=== PATIENT | female | born 1985 | race Caucasian/White ===

== ENCOUNTER 2024-05-04 18:22 | Emergency (ER) | payer MEDICAID ==
[~2024-05-04] VITALS: Ht 167.6 cm; Wt 143.8 kg
[2024-05-04 18:30] VITALS: BP_SYST 135; PULSE 72; RESP 18; TEMP 97.8; O2SAT 98
[2024-05-04 19:55] LABS: BASOPHILS # (AUTO) 0.1 K/uL (0.0-0.2); BASOPHILS % (AUTO) 0.8 % (0.0-2.0); EOSINOPHILS # (AUTO) 0.2 K/uL (0.0-0.4); EOSINOPHILS % (AUTO) 1.8 % (0.0-4.0); HEMATOCRIT 37.6 % (36-48); HEMOGLOBIN 12.6 g/dL (12.0-16.0); LYMPHOCYTES # (AUTO) 4.2 K/uL (1.0-5.5); LYMPHOCYTES % (AUTO) 39.3 % (20.5-51.5); MEAN CORPUSCULAR HEMOGLOBIN 28 pg (27-31); MEAN CORPUSCULAR HGB CONC 34 % (32-36); MEAN CORPUSCULAR VOLUME 85 fL (79.0-98.0); MONOCYTES # (AUTO) 0.5 K/uL (0.0-1.0); MONOCYTES % (AUTO) 4.6 % (1.7-9.3); NEUTROPHILS # (AUTO) 5.7 K/uL (1.8-7.7); NEUTROPHILS % (AUTO) 53.5 % (40.0-70.0); PLATELET COUNT (AUTO) 277 K/uL (130-430); RED BLOOD CELL COUNT(AUTO) 4.44 MIL/uL (4.2-6.2); RED CELL DISTRIBUTION WIDTH 14.5 % (9.0-15.0); WHITE BLOOD COUNT (AUTO) 10.7 K/uL (4.8-10.8)
[2024-05-04 20:33] LABS: CALCIUM 9.5 mg/dL (8.4-11.0); CREATININE 0.76 mg/dL (0.55-1.30); POTASSIUM 3.7 mmol/L (3.5-5.1)
[2024-05-04] MEDS ORDERED: AMOX-423 PO (21:01)
[2024-05-04] MEDS ORDERED: CORTEARS EACH EAR (21:01)
[2024-05-04] MEDS ORDERED: IBUP-1969 PO (21:01)
[2024-05-04 21:09] VITALS: BP_SYST 129; PULSE 70; RESP 18; TEMP 97.8; O2SAT 99
== END 2024-05-04 21:07 | disposition home or self-care (01) ==
LOC: SED 18:22
DX: H60.93 Unspecified otitis externa, bilateral (principal); Z79.899 Other long term (current) drug therapy; Z79.2 Long term (current) use of antibiotics
CPT/HCPCS: 36415; 70450-TC; 80048; 81025; 83605; 85025; 99284

== ENCOUNTER 2024-06-14 11:18 | Emergency (ER) | payer MEDICAID ==
[~2024-06-14] VITALS: Ht 165.1 cm; Wt 143.8 kg
[2024-06-14 11:18] VITALS: BP_SYST 112; PULSE 96; RESP 20; TEMP 97.8; O2SAT 98
[~2024-06-14 11:18] MED LIST: AMOX-423 PO; CORTEARS EACH EAR; IBUP-1969 PO
[2024-06-14] MEDS: ALBUTEROL SULFATE 0.083% 2.5 MG/3 ML VIAL.NEB INH ONE ×2 (12:15→13:30)
[2024-06-14] MEDS: IPRATROPIUM BROM 0.5 MG/2.5 ML VIAL.NEB (ATROVENT) INH ONE (12:15)
[2024-06-14] MEDS: predniSONE 20 MG TABLET PO ONE (12:27)
[2024-06-14 12:39] LABS: BASOPHILS # (AUTO) 0.1 K/uL (0.0-0.2); BASOPHILS % (AUTO) 0.9 % (0.0-2.0); EOSINOPHILS # (AUTO) 0.4 K/uL (0.0-0.4); EOSINOPHILS % (AUTO) 3.8 % (0.0-4.0); HEMATOCRIT 36.7 % (36-48); LYMPHOCYTES # (AUTO) 4.2 K/uL (1.0-5.5); LYMPHOCYTES % (AUTO) 36.1 % (20.5-51.5); MEAN CORPUSCULAR HEMOGLOBIN 28 pg (27-31); MEAN CORPUSCULAR HGB CONC 33 % (32-36); MEAN CORPUSCULAR VOLUME 85 fL (79.0-98.0); MONOCYTES # (AUTO) 0.7 K/uL (0.0-1.0); MONOCYTES % (AUTO) 5.8 % (1.7-9.3); NEUTROPHILS # (AUTO) 6.2 K/uL (1.8-7.7); NEUTROPHILS % (AUTO) 53.4 % (40.0-70.0); PLATELET COUNT (AUTO) 258 K/uL (130-430); RED BLOOD CELL COUNT(AUTO) 4.31 MIL/uL (4.2-6.2); WHITE BLOOD COUNT (AUTO) 11.5 K/uL (4.8-10.8)
[2024-06-14 13:30] LABS: ALBUMIN 3.5 g/dL (3.4-4.8); BILIRUBIN,DIRECT 0.1 mg/dL (0.0-0.3); CALCIUM 9.2 mg/dL (8.4-11.0); CREATININE 0.71 mg/dL (0.55-1.30); POTASSIUM 3.7 mmol/L (3.5-5.1); TOTAL BILIRUBIN 0.3 mg/dL (0.0-1.0); TOTAL PROTEIN, SERUM 7.2 g/dL (6.4-8.3)
[2024-06-14] MEDS ORDERED: ALBMDI INH (13:47)
[2024-06-14] MEDS ORDERED: PRED20TA PO (13:47)
[2024-06-14] MEDS ORDERED: IBUPROFEN 100 MG/5 ML UDC PO ONE (14:00)
[2024-06-14] MEDS ORDERED: ONDANSETRON 4 MG ODT TAB PO ONE (14:00)
[2024-06-14 14:36] VITALS: BP_SYST 112; PULSE 96; RESP 20; TEMP 97.8; O2SAT 99
== END 2024-06-14 15:20 | disposition home or self-care (01) ==
LOC: SED 11:18
DX: O20.0 Threatened abortion (principal); O99.511 Diseases of the respiratory system complicating pregnancy, first trimester; J40 Bronchitis, not specified as acute or chronic; J98.01 Acute bronchospasm; Z3A.01 Less than 8 weeks gestation of pregnancy; Z79.52 Long term (current) use of systemic steroids; Z79.2 Long term (current) use of antibiotics; Z79.899 Other long term (current) drug therapy
CPT/HCPCS: 99284; 76856; 80053; 84702; 85025; 86900; 86901; 36415; 94640; 80076; J7512